=== PATIENT | female | born 1975 | race Caucasian/White ===

== ENCOUNTER 2021-12-06 23:36 | Inpatient (IN) | payer BC ==
[~2021-12-06] VITALS: Ht 162.6 cm; Wt 72.6 kg
[2021-12-07] MEDS ORDERED: ONDANSETRON HCL 4MG/2ML INJ IV ONE (01:00)
[2021-12-07 01:12] LABS: HEMATOCRIT. 39.2 % (36.0-48.0); HEMOGLOBIN. 12.9 g/dL (12.0-16.0); MEAN CORPUSCULAR HEMOGLOBIN 28.3 pg (28.0-32.0); MEAN CORPUSCULAR VOLUME 85.9 fL (81.0-99.0); MEAN PLATELET VOLUME 8.3 fl (7.4-10.4); PLATELET 221 x1000/uL (130-400); RED BLOOD CELL COUNT 4.57 mill/uL (4.2-5.4); RED CELL DISTRIBUTION WIDTH 13.2 % (11.6-14.6)
[2021-12-07 01:23] LABS: CHLORIDE 104 mEq/L (98-107)
[2021-12-07 01:34] LABS: HCG SCREEN NEGATIVE
[2021-12-07] MEDS ORDERED: ENOXAPARIN 80MG/0.8ML SYR SUBCUT ONE ×2 (03:24)
[2021-12-07] MEDS ORDERED: SODIUM CHLORIDE 0.9% 1,000 ML IV ONE (05:00)
[2021-12-07] MEDS ORDERED: DEXTROSE 50% WATER 50ML SYRINGE IV PRN (06:15)
[2021-12-07] MEDS ORDERED: IPRATROPIUM/ALBUTEROL 0.5-3(2.5)MG/3ML NEB HHN PRN (06:15)
[2021-12-07] MEDS ORDERED: DOCUSATE SODIUM 100MG CAPSULE PO PRN (06:15)
[2021-12-07] MEDS ORDERED: ONDANSETRON HCL 4MG/2ML INJ IV PRN (06:15)
[2021-12-07] MEDS: BLOOD SUGAR DIAGNOSTIC STRIP TEST SCH ×4 (06:50→23:23)
[2021-12-07 06:57] LABS: CHLORIDE 103 mEq/L (98-107)
[2021-12-07 07:02] LABS: CLARITY URINE CLEAR (CLEAR); COLOR URINE YELLOW (YELLOW); PH URINE 5.5 (4.5-8.0); SPECIFIC GRAVITY URINE 1.044 (1.005-1.030)
[2021-12-07 07:05] LABS: KETONES URINE 3+ (NEGATIVE); NITRITE URINE NEGATIVE (NEGATIVE); OCCULT BLOOD URINE NEGATIVE (NEGATIVE); PROTEIN URINE 2+ (NEGATIVE); UROBILINOGEN URINE 0.2 E.U./dL (0.2-1.0)
[2021-12-07 07:06] LABS: LEUKOCYTE ESTERASE URINE NEGATIVE (NEGATIVE)
[2021-12-07 07:13] LABS: HDL CHOLESTEROL 47 mg/dL (40-59); LDL CHOLESTEROL 153 mg/dL (5-100)
[2021-12-07 08:23] LABS: PLATELET ESTIMATE NORMAL
[2021-12-07] MEDS: INSULIN LISPRO 100 UNITS/ML SUBCUT SCH ×3 (08:32→21:23)
[2021-12-07] MEDS ORDERED: INSULIN GLARGINE 100 UNITS/ML SUBCUT SCH (09:00)
[2021-12-07] MEDS: ASPIRIN 81MG TABLET PO SCH (09:45)
[2021-12-07] MEDS ORDERED: ASPIRIN 81MG EC TABLET PO SCH (11:00)
[2021-12-07] MEDS: METOPROLOL TARTRATE 25MG TABLET PO SCH ×2 (11:14→20:21)
[2021-12-07] MEDS ORDERED: REGADENOSON 0.4 MG/5 ML IV ONE (11:30)
[2021-12-07 16:00] VITALS: BP 112/69
[2021-12-07] MEDS: ACETAMINOPHEN 325MG TABLET PO PRN ×2 (16:41→23:25)
[2021-12-07 17:00] VITALS: BP 112/69
[2021-12-07] MEDS ORDERED: ENOXAPARIN 80MG/0.8ML SYR SUBCUT NR (18:00)
[2021-12-07] MEDS ORDERED: ENOXAPARIN 80MG/0.8ML SYR SUBCUT SCH (18:00)
[2021-12-07] MEDS ORDERED: INSU100I28 SQ (18:48)
[2021-12-07] MEDS ORDERED: ATOR20TA65 MT (18:48)
[2021-12-07] MEDS ORDERED: METF-414 MT (18:48)
[2021-12-07 18:59] LABS: *AMPHETAMINES SCREEN URINE NEGATIVE (NEGATIVE); *BARBITURATES SCREEN URINE NEGATIVE (NEGATIVE); *BENZODIAZEPINES SCREEN URINE NEGATIVE (NEGATIVE); *COCAINE SCREEN URINE NEGATIVE (NEGATIVE); CANNABINOID URINE SCREEN NEGATIVE (NEGATIVE); METHADONE URINE SCREEN NEGATIVE (NEGATIVE); OPIATES URINE SCREEN NEGATIVE (NEGATIVE); PHENCYCLIDINE URINE SCREEN NEGATIVE (NEGATIVE)
[2021-12-07 20:00] VITALS: BP 94/56
[2021-12-07] MEDS: ATORVASTATIN CALCIUM 10MG TABLET PO SCH (20:20)
[2021-12-07] MEDS: PIPERACILLIN/TAZOBACTAM 3.375 G in DEXTROSE 5% WATER 50 ML IV SCH (23:16)
[2021-12-08] VITALS: BP 102/62
[2021-12-08] MEDS ORDERED: SODIUM CHLORIDE 0.9% 1,000 ML IV SCH
[2021-12-08 04:00] VITALS: BP_SYST 106; BP_SYST 113; BP_DIAS 65; BP_DIAS 66
[2021-12-08] MEDS: PIPERACILLIN/TAZOBACTAM 3.375 G in DEXTROSE 5% WATER 50 ML IV SCH ×3 (06:16→21:11)
[2021-12-08] MEDS: BLOOD SUGAR DIAGNOSTIC STRIP TEST SCH ×5 (06:16→23:56)
[2021-12-08] MEDS: ACETAMINOPHEN 325MG TABLET PO PRN ×2 (06:30→18:34)
[2021-12-08] MEDS: INSULIN LISPRO 100 UNITS/ML SUBCUT SCH ×5 (07:50→21:12)
[2021-12-08 08:00] VITALS: BP 90/56
[2021-12-08 08:16] LABS: BASOPHILS % 0.4 % (0.0-2.0); EOSINOPHILS % 0.2 % (0.0-5.0); HEMOGLOBIN. 12.6 g/dL (12.0-16.0); LYMPHOCYTES % 15.6 % (20.0-50.0); MEAN CORPUSCULAR HEMOGLOBIN 28.6 pg (28.0-32.0); MEAN CORPUSCULAR VOLUME 86.1 fL (81.0-99.0); MEAN PLATELET VOLUME 8.9 fl (7.4-10.4); MONOCYTES % 9.4 % (2.0-8.0); NEUTROPHILS % 74.4 % (40.0-76.0); PLATELET 201 x1000/uL (130-400); RED BLOOD CELL COUNT 4.41 mill/uL (4.2-5.4); RED CELL DISTRIBUTION WIDTH 13.5 % (11.6-14.6)
[2021-12-08 08:20] LABS: CHLORIDE 106 mEq/L (98-107)
[2021-12-08 08:34] LABS: PARTIAL THROMBOPLASTIN TIME 27.4 sec (23.4-31.0); PROTHROMBIN TIME 10.9 sec (9.6-11.0)
[2021-12-08] MEDS: METOPROLOL TARTRATE 25MG TABLET PO SCH ×2 (08:53→21:12)
[2021-12-08] MEDS: ASPIRIN 81MG TABLET PO SCH (10:38)
[2021-12-08] MEDS ORDERED: REGADENOSON 0.4 MG/5 ML IV NR (10:45)
[2021-12-08 12:00] VITALS: BP 94/58
[2021-12-08 14:43] VITALS: BP 115/71
[2021-12-08] MEDS: GUAIFENESIN 200MG/10ML SUGAR FREE UDC PO PRN (18:34)
[2021-12-08 20:00] VITALS: BP 124/65
[2021-12-08] MEDS: ATORVASTATIN CALCIUM 10MG TABLET PO SCH (21:12)
[2021-12-08] MEDS: INSULIN GLARGINE 100 UNITS/ML SUBCUT SCH (21:13)
[2021-12-09] VITALS: BP 122/66
[2021-12-09 04:00] VITALS: BP 130/68
[2021-12-09] MEDS: GUAIFENESIN 200MG/10ML SUGAR FREE UDC PO PRN (05:37)
[2021-12-09] MEDS: PIPERACILLIN/TAZOBACTAM 3.375 G in DEXTROSE 5% WATER 50 ML IV SCH ×2 (05:37→13:26)
[2021-12-09] MEDS: BLOOD SUGAR DIAGNOSTIC STRIP TEST SCH ×2 (05:42→12:06)
[2021-12-09 06:43] LABS: BASOPHILS % 0.3 % (0.0-2.0); EOSINOPHILS % 0.2 % (0.0-5.0); HEMATOCRIT. 36.9 % (36.0-48.0); HEMOGLOBIN. 12.3 g/dL (12.0-16.0); LYMPHOCYTES % 23.2 % (20.0-50.0); MEAN CORPUSCULAR HEMOGLOBIN 28.3 pg (28.0-32.0); MEAN CORPUSCULAR VOLUME 85.2 fL (81.0-99.0); MEAN PLATELET VOLUME 8.7 fl (7.4-10.4); MONOCYTES % 11.8 % (2.0-8.0); NEUTROPHILS % 64.5 % (40.0-76.0); PLATELET 214 x1000/uL (130-400); RED BLOOD CELL COUNT 4.33 mill/uL (4.2-5.4); RED CELL DISTRIBUTION WIDTH 13.1 % (11.6-14.6)
[2021-12-09 06:56] LABS: CHLORIDE 107 mEq/L (98-107)
[2021-12-09 08:00] VITALS: BP 106/70
[2021-12-09] MEDS: METOPROLOL TARTRATE 25MG TABLET PO SCH (08:42)
[2021-12-09] MEDS: ASPIRIN 81MG TABLET PO SCH (08:49)
[2021-12-09] MEDS: INSULIN LISPRO 100 UNITS/ML SUBCUT SCH ×2 (08:50→13:31)
[2021-12-09] MEDS: INSULIN GLARGINE 100 UNITS/ML SUBCUT SCH (11:07)
[2021-12-09] MEDS ORDERED: LEVO750T46 MT (16:26)
[2021-12-09 17:00] VITALS: BP 110/74
[2021-12-09 17:02] VITALS: BP 110/74
== END 2021-12-09 18:26 | disposition home or self-care (01) | DRG 871 ==
LOC: ER 23:36 → 6WST 12-07 12:38 → ENRESERV 12-07 13:06
PROVIDERS: ADMIT Internal Medicine; ATTEND Internal Medicine
DX: A41.51 Sepsis due to Escherichia coli [E. coli] (principal); I21.4 Non-ST elevation (NSTEMI) myocardial infarction; E44.1 Mild protein-calorie malnutrition; N39.0 Urinary tract infection, site not specified; E11.65 Type 2 diabetes mellitus with hyperglycemia; E78.5 Hyperlipidemia, unspecified; F41.1 Generalized anxiety disorder; I10 Essential (primary) hypertension; R77.8 Other specified abnormalities of plasma proteins; E78.00 Pure hypercholesterolemia, unspecified; Z20.822 Contact with and (suspected) exposure to COVID-19; Z79.4 Long term (current) use of insulin; Z68.25 Body mass index [BMI] 25.0-25.9, adult
CPT/HCPCS: 36415; 71045; 78452; 80048; 80053; 80061; 80305; 81003; 82962; 83036; 83735; 84145; 84443; 84484; 84703; 85025; 87077; 87186; 87426; 93005; 93017; 93306; 99285; A9500; J1650; J1815; J2543; J2785; J7030; J7060